=== PATIENT | female | born 1990 | race Two or more races ===

== ENCOUNTER 2021-08-29 18:18 | Inpatient (IN) | payer OTHER ==
[~2021-08-29] VITALS: Ht 167.6 cm; Wt 95.3 kg
[2021-08-29] MEDS ORDERED: PROGESTERONE100 M1 PO (18:43)
[2021-08-29] MEDS ORDERED: PRENATAL TABLE1 EAC5 PO (18:46)
== END 2021-09-01 14:55 | disposition home or self-care (01) | DRG 805 ==
LOC: OBS/DEL 18:18 → LDR 20:55 → OB/GYN 08-31 18:50
PROVIDERS: ADMIT Obstetrics & Gynecology; ATTEND Obstetrics & Gynecology
PROC: 4A1HXCZ Monitoring of Products of Conception, Cardiac Rate, External Approach (ICD-10-PCS; 2021-08-29)
PROC: 10E0XZZ Delivery of Products of Conception, External Approach (ICD-10-PCS; principal; 2021-08-31)
PROC: 3E033VJ Introduction of Other Hormone into Peripheral Vein, Percutaneous Approach (ICD-10-PCS; 2021-08-31)
PROC: BY4CZZZ Ultrasonography of Second Trimester, Single Fetus (ICD-10-PCS; 2021-08-31)
DX: O03.89 Complete or unspecified spontaneous abortion with other complications (principal); O41.1220 Chorioamnionitis, second trimester, not applicable or unspecified; Z37.1 Single stillbirth; O26.872 Cervical shortening, second trimester; O44.02 Complete placenta previa NOS or without hemorrhage, second trimester; O26.842 Uterine size-date discrepancy, second trimester; O26.852 Spotting complicating pregnancy, second trimester; Z3A.19 19 weeks gestation of pregnancy